=== PATIENT | male | born 1955 | race Caucasian/White ===

== ENCOUNTER 2017-01-09 20:04 | Emergency (ER) | payer MEDICARE, OTHER, MEDICAID ==
[~2017-01-09 20:04] MED LIST: ALOE VESTA141 GM TP; BACLOFEN10 MG PO; CALCIUM 500 +1 EAC1 PO; CEFZIL DPS250 MG PO; DEPAKOTE500 MG PO; FEOSOL-DPS325 MG PO; FORTICAL NASAL3.7 ML NS; HIPREX DPS1 GM PO; HYDROCODONE 5MG/5 MG PO; MAALOX DPS30 ML PO; MAGOX 400400 MG PO; PRILOSEC DPS20 MG PO; SARNA ANTI-ITC222 ML TP; SENOKOT DPS8.6 MG PO; SURFAK DPS240 MG PO; TYLENOL DPS325 MG PO; VALIUM-DPS2 MG PO; VITAMIN C1000 MG PO; [UNRECOGNIZED DRUG - OTHER] PO
--- NOTE | 2017-01-10 05:44 | ER ---
ADMIT: 01/09/2017 RM/LOC: ER [facility] MR#: [id number] [place], [place] [id number] [address] [facility] [place] [address] Emergency Room Report SEX: M AGE: 61 : 1955 DATE: 01/09/2017 The patient is a 61-year-old, male with chronic indwelling Campos for neurogenic bladder, complains of lower abdominal discomfort since recent Campos catheter changed. Exam remarkable for nontoxic, afebrile male. Indwelling Campos. Normal CBC and CMP except for creatinine 1.4. UA; 3+ leukocyte esterase, 113 wbc's with clumps, rare bacteria. Culture pending. The patient treated with Macrobid 100 mg p.o. b.i.d. x10 days, first dose in department. Follow up Dr. Hull next week. Ollie Calvillo MD/ miguel a JOB #: [id number] CC: Ollie Calvillo MD, Attending Physician Jose Hull MD
== END 2017-01-09 22:10 | disposition home or self-care (01) ==
LOC: ER 20:04
DX: N39.0 Urinary tract infection, site not specified (principal); I10 Essential (primary) hypertension; Z88.8 Allergy status to other drugs, medicaments and biological substances; Z79.899 Other long term (current) drug therapy